=== PATIENT | female | born 1990 | race Two or more races ===

== ENCOUNTER 2020-12-17 23:47 | Emergency (ER) | payer OTHER ==
[~2020-12-17] VITALS: Ht 160 cm; Wt 61.2 kg
[2020-12-18 02:17] VITALS: BP 107/66
--- NOTE | 2020-12-18 02:17 | NUR ---
C/O "I THINK I HAVE A FLESH EATING BACTERIA FROM PADDLE BOARDING", MULTIPLE SORES. TO ER BED 9
[2020-12-18] MEDS ORDERED: CEPH500C2 PO (02:18)
[2020-12-18] MEDS ORDERED: SULF1TAB48 PO (02:18)
== END 2020-12-18 02:43 | disposition home or self-care (01) ==
LOC: ER 23:52
DX: A49.02 Methicillin resistant Staphylococcus aureus infection, unspecified site (principal)